=== PATIENT | female | born 1960 ===

== ENCOUNTER 2019-07-29 14:41 | Emergency (ER) | payer BC, MEDICAID ==
[2019-07-29 15:06] VITALS: BP 116/67
--- NOTE | 2019-07-29 15:28 | UC ---
Hand/Wrist HPI - HPI Summary HPI Summary: 59 year old female who speaks [place] Island[place] however she is in attendance with her daughter who interprets for her. She has a history of arthritis and past week or so she has had bilateral hand pain and her right middle finger has been sticking in place in a flexed position (although she is able to pop it out without difficulty). She denies any injury to her hands her finger. - History Of Current Complaint Chief Complaint: UCUpperExtremity Stated Complaint: BILATERAL HAND PAIN Time Seen by Provider: 07/29/19 15:09 Hx Obtained From: Patient, Family/[employer] ?: No Onset/Duration: Gradual Onset Severity Initially: Mild Severity Currently: Mild Pain Intensity: 7 Character Of Pain: Dull, Aching Aggravating Factor(s): Movement Alleviating Factor(s): Nothing Associated Signs And Symptoms: Positive: Swelling - The daughter states the patient has noted a mild increase in swelling of her fingers. - Allergies/Home Medications Allergies/Adverse Reactions: Allergies Allergy/AdvReac Type Severity Reaction Status Date / Time No Known Allergies Allergy Verified 07/29/19 15:06 Home Medications: Home Medications Simvastatin 20 mg PO DAILY 07/29/19 [History Confirmed 07/29/19] metFORMIN* [Glucophage 1000 MG TAB *] 1,000 mg PO BID 07/29/19 [History Confirmed 07/29/19] PMH/Surg Hx/FS Hx/Imm Hx - Additional Past Medical History Additional PMH: Chronic arthritis. Previously Healthy: Yes Endocrine History: Diabetes - Surgical History Surgical History: Yes Surgery Procedure, Year, and Place: c section x 3 - Family History Known Family History: Positive: Non-Contributory - Social History Alcohol Use: None Substance Use Type: None Smoking Status (MU): Current Every Day Smoker Amount Used/How Often: 7 cig/day Length of Time of Smoking/Using Tobacco: 20 years Review of Systems All Other Systems Reviewed And Are Negative: Yes Skin: Positive: Other - The daughter states she has experienced mild increase in some finger swelling without known injury. Musculoskeletal: Positive: Other: - When the patient flexes her right middle finger it states in place but she can extend it then without difficulty. Is Patient Immunocompromised?: No Physical Exam Triage Information Reviewed: Yes Appearance: Well-Appearing, No Pain Distress, Well-Nourished Vital Signs: Initial Vital Signs Temp 97.9 F 07/29/19 14:58 Pulse 74 07/29/19 14:58 Resp 18 07/29/19 14:58 BP 116/67 07/29/19 14:58 Pulse Ox 99 07/29/19 14:58 Vital Signs Reviewed: Yes Musculoskeletal: Positive: Strength Intact, ROM Intact, Other: - The patient's fingers are minimally swollen but with full range of motion. With flexion the right middle finger can stay in place but the patient is able to pop it back into extension without difficulty. No bruising or erythema is noted. Good peripheral pulses neuro sensation and capillary refill. Good finger strength with flexion extension against resistance. Neurological Exam: Normal Psychological Exam: Normal Skin Exam: Normal Hand/Wrist Course/Dx - Course Course Of Treatment: I referred the patient to the orthopedist for further care. I believe the right middle finger is a ligamentous involvement. For her chronic arthritis she does not take any pain medication therefore I sent her a prescription for Motrin and she may apply warm moist compresses to the area. She is to follow- up with her primary care provider regarding that. Blood sugar here was normal. The patient is awake and alert does not appear ill. - Differential Dx/Diagnosis Provider Diagnosis: Ligament laxity, History of arthritis Discharge ED - Sign-Out/Discharge Documenting (check all that apply): Patient Departure All imaging exams completed and their final reports reviewed: No Studies - Discharge Plan Condition: Good Disposition: HOME Prescriptions: Ibuprofen TAB* [Motrin TAB* 600 MG] 600 mg PO Q8H PRN #21 tab PRN Reason: Pain - Mild Patient Education Materials: Arthritis (ED) Referrals: No Primary Care Phys,NOPCP [Primary Care Provider] - Joshua Matt MD [Medical Doctor] - Additional Instructions: Take the medication with food. Elevate your hands as much as possible. You may try warm moist compresses to the sore areas. Definite follow-up with your primary care provider or with the orthopedist for further care. - Billing Disposition and Condition Condition: GOOD Disposition: Home
== END 2019-07-29 15:35 | disposition home or self-care (01) ==
LOC: UCCORT 14:41
DX: M24.242 Disorder of ligament, left hand (principal); M24.241 Disorder of ligament, right hand; E11.9 Type 2 diabetes mellitus without complications; F17.210 Nicotine dependence, cigarettes, uncomplicated; Z87.39 Personal history of other diseases of the musculoskeletal system and connective tissue; Z79.84 Long term (current) use of oral hypoglycemic drugs
CPT/HCPCS: 99212; G0463